=== PATIENT | female | born 1990 | race Two or more races ===

== ENCOUNTER 2017-11-17 02:07 | Emergency (ER) | payer MEDICAID ==
[2010-11-13 05:32] VITALS: BMI 49.1
[2017-11-17 02:32] LABS: UDS - AMPHET NEGATIVE QUAL (NEGATIVE); UDS - BARB NEGATIVE QUAL (NEGATIVE); UDS - BENZO NEGATIVE QUAL (NEGATIVE); UDS - COCAINE NEGATIVE QUAL (NEGATIVE); UDS - OPIATE NEGATIVE QUAL (NEGATIVE); UDS - PCP NEGATIVE QUAL (NEGATIVE); UDS - THC NEGATIVE QUAL (NEGATIVE)
[2017-11-17 02:33] LABS: APPEARANCE CLEAR (CLEAR); BILIRUBIN NEGATIVE (NEGATIVE); COLOR YELLOW (YELLOW); GLUCOSE NEGATIVE (NEGATIVE); KETONE NEGATIVE (NEGATIVE); NITRITE NEGATIVE (NEGATIVE); PROTEIN NEGATIVE (NEGATIVE); UROBILINOGEN NORMAL (NORMAL)
[2017-11-17 02:43] LABS: BASOPHILS 0.5 % (0-2); EOSINOPHILS 0.3 % (0-7); HEMOGLOBIN 10.5 g/dL (12-16); IMMATURE GRANULOCYTES 0.2 % (0-5); MCH 24.8 pg (26.0-34.0); MCHC 30.9 g/dL (31.0-37.0); MCV 80.4 fL (80.0-100.0); MONOCYTES 6.2 % (2-11); NEUTROPHILS 59.8 % (40-80); RBC 4.23 10x6/uL (4.00-5.40); RDW 15.6 % (11.5-14.5); WBC 5.9 10x3/uL (4.8-10.8)
[2017-11-17 02:46] LABS: PLATELET COUNT 280 10x3/uL (130-400)
[2017-11-17 02:48] LABS: HCG URINE NEGATIVE (NEGATIVE)
[2017-11-17 02:58] LABS: ALBUMIN 3.7 g/dL (3.4-5.0); ALKALINE PHOSPHATASE 58 U/L (46-116); ALT (SGPT) 27 U/L (10-68); BILIRUBIN - TOTAL 0.36 mg/dL (0.2-1.3); CALC OSMOLALITY 278 mosm/kg (275-300); CALCIUM 8.4 mg/dL (8.5-10.1); CARBON DIOXIDE 24.9 mmol/L (21.0-32.0); CHLORIDE - SERUM 107 mmol/L (98-107); CREATININE - SERUM 0.8 mg/dL (0.6-1.3); GLUCOSE 89 mg/dL (74-106); POTASSIUM - SERUM 3.1 mmol/L (3.5-5.1); PROTEIN - SERUM 7.4 g/dL (6.4-8.2); SODIUM 141 mmol/L (136-145); UREA NITROGEN 11 mg/dL (7-18); eGFR NON AFRICAN AMERICAN 90 mL/min (90-120)
== END 2017-11-17 04:38 | disposition home or self-care (01) ==
LOC: D.ER 02:07
PROVIDERS: Family Medicine
DX: F33.9 Major depressive disorder, recurrent, unspecified (principal); F10.129 Alcohol abuse with intoxication, unspecified; R45.851 Suicidal ideations; J20.9 Acute bronchitis, unspecified; E87.6 Hypokalemia; F17.200 Nicotine dependence, unspecified, uncomplicated

== ENCOUNTER → 2018-03-25 14:54 | Outpatient (CLI) | payer MEDICAID ==
[2010-11-13 05:32] VITALS: BMI 49.1
== END | disposition home or self-care (01) ==
LOC: D.MRI 14:54
DX: M25.562 Pain in left knee (principal)

== ENCOUNTER → 2018-03-28 08:12 | Outpatient (CLI) | payer MEDICAID ==
[2010-11-13 05:32] VITALS: BMI 49.1
== END | disposition home or self-care (01) ==
LOC: D.US 08:00
DX: R22.42 Localized swelling, mass and lump, left lower limb (principal)